=== PATIENT | male | born 1955 | race Caucasian/White ===

== ENCOUNTER 2016-12-28 18:04 | Emergency (ER) | payer MEDICARE ==
[~2016-12-28] VITALS: Ht 185.4 cm; Wt 102.5 kg
[~2016-12-28 18:04] MED LIST: BENZ1TAB61; ESOM20CA PO; GLIP-33; LISI20TA
[2016-12-28 18:15] VITALS: BP 135/75
[2016-12-28] MEDS ORDERED: LIDOCAINE 1%, 20ML INFIL ONE (19:00)
[2016-12-28] MEDS ORDERED: CARBAMIDE PEROXIDE EAR DROPS 6.5%, 15ML RIGHT EAR ONE (19:00)
[2016-12-28] MEDS ORDERED: LIDOCAINE 1%, 20ML ONE (19:47)
== END 2016-12-28 20:23 | disposition home or self-care (01) ==
LOC: ED 19:34
DX: S00.451A Superficial foreign body of right ear, initial encounter (principal); L03.311 Cellulitis of abdominal wall; I10 Essential (primary) hypertension; E11.9 Type 2 diabetes mellitus without complications; X58.XXXA Exposure to other specified factors, initial encounter; Y93.89 Activity, other specified; Y92.89 Other specified places as the place of occurrence of the external cause; Y99.2 Volunteer activity
CPT/HCPCS: 10060; 69200; 69210

== ENCOUNTER 2018-11-06 13:15 | Emergency (ER) | payer MEDICARE ==
[~2018-11-06] VITALS: Ht 185.4 cm; Wt 98.9 kg
[~2018-11-06 13:15] MED LIST changes: +ASPI-496 PO; +BENZATROPINE PO; +GLIP5TAB10 PO; +LISI-170 PO; +METF10002 PO; +TRAZ50TA66 PO
[2018-11-06 13:16] VITALS: BP 120/82
--- NOTE | 2018-11-06 13:44 | NUR ---
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
[2018-11-06] MEDS ORDERED: FLUORESCEIN OPHTHALMIC 1 MG STRIP ONE (13:51)
[2018-11-06] MEDS ORDERED: PROPARACAINE OPHTH 0.5%, 15ML ONE (13:51)
[2018-11-06] MEDS ORDERED: PROPARACAINE OPHTH 0.5%, 15ML EACHEYE ONE (14:00)
[2018-11-06] MEDS ORDERED: FLUORESCEIN OPHTHALMIC 1 MG STRIP EACHEYE ONE (14:00)
--- NOTE | 2018-11-06 14:08 | NUR ---
D/C INSTRUCTIONS & F/U APPT RV'WD WITH PT, HE VERBALIZES UNDERSTANDING. INSTRUCTED PT TO RETURN IF STILL EXPERIENCING PAIN TO L EYE. PT AMBULATED OUT OF ED WITHOUT DIFFICULTY.
== END 2018-11-06 14:11 | disposition home or self-care (01) ==
LOC: ED 13:49
DX: T15.12XA Foreign body in conjunctival sac, left eye, initial encounter (principal); F17.200 Nicotine dependence, unspecified, uncomplicated
CPT/HCPCS: 65205; 65222; 99284

== ENCOUNTER 2019-01-14 20:04 | Emergency (ER) | payer MEDICARE ==
[~2019-01-14] VITALS: Ht 185.4 cm; Wt 98.9 kg
[2019-01-14 20:07] VITALS: BP 123/87
[2019-01-14] MEDS ORDERED: FLUORESCEIN OPHTHALMIC 1 MG STRIP ONE (20:22)
== END 2019-01-14 20:41 | disposition home or self-care (01) ==
LOC: ED 20:25
DX: S05.01XA Injury of conjunctiva and corneal abrasion without foreign body, right eye, initial encounter (principal); K21.9 Gastro-esophageal reflux disease without esophagitis; I10 Essential (primary) hypertension; E11.9 Type 2 diabetes mellitus without complications; X58.XXXA Exposure to other specified factors, initial encounter; Y93.89 Activity, other specified; Y92.89 Other specified places as the place of occurrence of the external cause; Y99.8 Other external cause status
CPT/HCPCS: 99283

== ENCOUNTER 2019-05-23 02:13 | Emergency (ER) | payer MEDICARE ==
[~2019-05-23] VITALS: Ht 185.4 cm; Wt 96.9 kg
[2019-05-23] MEDS ORDERED: MAALOX/HYOSCYAMINE/LIDOCAINE 45 ML BTL ONE (02:40)
[2019-05-23] MEDS ORDERED: FAMOTIDINE 20 MG TABLET ONE (02:40)
[2019-05-23 02:57] LABS: BASOPHILS # (AUTO) 0.02 x10^3/uL (0-0.1); BASOPHILS % (AUTO) 0 % (0-1); EOSINOPHILS # (AUTO) 0.14 x10^3/uL (0-0.4); EOSINOPHILS % (AUTO) 2 % (1-7); LYMPHOCYTES # (AUTO) 1.32 x10^3/uL (1-3.4); LYMPHOCYTES % (AUTO) 21 % (22-44); MD NO; MEAN CORPUSCULAR HEMOGLOBIN 33.2 pg (27.5-34.5); MEAN CORPUSCULAR HGB CONC 34.3 g/dL (33.2-36.2); MEAN CORPUSCULAR VOLUME 96.8 fL (81-97); MEAN PLATELET VOLUME 8.2 fL (7.4-10.4); MONOCYTES # (AUTO) 0.41 x10^3/uL (0.2-0.8); MONOCYTES % (AUTO) 7 % (2-9); NEUTROPHILS # (AUTO) 4.35 x10^3/uL (1.8-6.8); NEUTROPHILS % (AUTO) 70 % (42-75); PLATELET COUNT 200 x10^3/uL (130-400); RED BLOOD COUNT 4.78 x10^6/uL (4.38-5.82); RED CELL DISTRIBUTION WIDTH 12.4 % (9.4-14.8)
[2019-05-23] MEDS ORDERED: FAMOTIDINE 20 MG TABLET PO ONE (03:00)
[2019-05-23] MEDS ORDERED: MAALOX/HYOSCYAMINE/LIDOCAINE 45 ML BTL PO ONE (03:00)
--- NOTE | 2019-05-23 03:00 | NUR ---
PT STATED"HE FEELS BETTER AFTER GI COCKTAIL AND PEPCID PILL, / PAIN NOW FROM A 11/14"
[2019-05-23 03:24] LABS: ALBUMIN 3.3 g/dL (3.4-5.0); ANION GAP 7 mmol/L (5-15); CALCIUM 8.1 mg/dL (8.5-10.1); CHLORIDE 101 mmol/L (98-107); CREATININE 0.79 mg/dL (0.7-1.3)
[2019-05-23 03:27] LABS: ALKALINE PHOSPHATASE 81 U/L (45-117); BILIRUBIN,TOTAL 0.7 mg/dL (0.2-1.0); TOTAL PROTEIN 6.2 g/dL (6.4-8.2)
[2019-05-23 03:29] LABS: ALANINE AMINOTRANSFERASE 50 U/L (12-78)
[2019-05-23 03:50] VITALS: BP 128/74
== END 2019-05-23 04:18 | disposition home or self-care (01) ==
LOC: ED 03:16
DX: R10.13 Epigastric pain (principal); I10 Essential (primary) hypertension; E11.9 Type 2 diabetes mellitus without complications; F20.9 Schizophrenia, unspecified; K21.9 Gastro-esophageal reflux disease without esophagitis
CPT/HCPCS: 36415; 80053; 83690; 85025; 93005; 99284

== ENCOUNTER 2020-01-28 18:24 | Emergency (ER) | payer MEDICARE ==
[~2020-01-28] VITALS: Ht 185.4 cm; Wt 99.9 kg
[2020-01-28] MEDS ORDERED: FLUPHENAZINE INJ (19:35)
[2020-01-28] MEDS ORDERED: DIPH25CA61 PO (19:35)
[2020-01-28] MEDS ORDERED: FENO145T32 PO (19:35)
[2020-01-28] MEDS ORDERED: PIOG30TA68 PO (19:45)
--- NOTE | 2020-01-28 19:45 | NUR ---
LATE ENTRY: PT CAME INTO ED DUE TO MIDLINE ABDOMINAL PAIN THAT HE DESCRIBES 5-6/10 AND "SORENESS, CRAMPING PAIN" PT REPORTS DRY HEAVING AND THAT THE PAIN HAS BEEN THERE FOR ABOUT 30 HOURS. FIRST PT CONTACT: PT RESTING IN GURNEY, WEARING GOWN, NAD, SKIN COLOR WNL WARM AND DRY, PULSES 2+, MAEx4, STATES HE IS SLIGHTLY NAUSEATED CURRENTLY, LAST BM THIS AM. WCTM.
[2020-01-28] MEDS ORDERED: MAALOX/HYOSCYAMINE/LIDOCAINE 45 ML BTL ONE (20:13)
--- NOTE | 2020-01-28 20:15 | NUR ---
PT BACK FROM RADIOLOGY, MEDICATED PER SEP, LAB AT , NO CHANGES IN CONDITION, WCTM, WAITING FOR TEST RESULTS.
[2020-01-28 20:21] LABS: BASOPHILS # (AUTO) 0.03 x10^3/uL (0-0.1); BASOPHILS % (AUTO) 0 % (0-1); EOSINOPHILS % (AUTO) 1 % (1-7); LYMPHOCYTES # (AUTO) 1.57 x10^3/uL (1-3.4); LYMPHOCYTES % (AUTO) 16 % (22-44); MD NO; MEAN CORPUSCULAR HEMOGLOBIN 32.8 pg (27.5-34.5); MEAN CORPUSCULAR HGB CONC 34.4 g/dL (33.2-36.2); MEAN CORPUSCULAR VOLUME 95.3 fL (81-97); MEAN PLATELET VOLUME 8.1 fL (7.4-10.4); MONOCYTES # (AUTO) 0.83 x10^3/uL (0.2-0.8); MONOCYTES % (AUTO) 9 % (2-9); NEUTROPHILS # (AUTO) 7.18 x10^3/uL (1.8-6.8); NEUTROPHILS % (AUTO) 74 % (42-75); PLATELET COUNT 192 x10^3/uL (130-400); RED BLOOD COUNT 4.75 x10^6/uL (4.38-5.82); RED CELL DISTRIBUTION WIDTH 12.4 % (9.4-14.8)
[2020-01-28] MEDS ORDERED: MAALOX/HYOSCYAMINE/LIDOCAINE 45 ML BTL PO ONE (20:30)
[2020-01-28 20:35] LABS: ALBUMIN 3.6 g/dL (3.4-5.0); ANION GAP 6 mmol/L (5-15); CALCIUM 9.5 mg/dL (8.5-10.1); CHLORIDE 97 mmol/L (98-107); CREATININE 0.88 mg/dL (0.7-1.3)
--- NOTE | 2020-01-28 20:38 | NUR ---
PT RESTING IN [facility], STATES HIS ABDOMEN BARELY HURTS NOW. NAD. WCTM. WAITING FOR LAB RESULTS. PT GIVEN URINAL FOR USE.
[2020-01-28 20:39] LABS: ALKALINE PHOSPHATASE 76 U/L (45-117); BILIRUBIN,TOTAL 0.8 mg/dL (0.2-1.0); TOTAL PROTEIN 6.9 g/dL (6.4-8.2); TROPONIN I < 0.015 ng/mL (0.000-0.045)
[2020-01-28 20:40] LABS: ALANINE AMINOTRANSFERASE 40 U/L (12-78)
--- NOTE | 2020-01-28 21:45 | NUR ---
LATE ENTRY: PT GIVEN WARM BLANKET FOR COMFORT, RESTING IN GURNEY, NO CHANGE IN CONDITION. DENIES ADDITIONAL NEEDS AT THIS TIME, NAD. WAITING FOR US. WCTM
--- NOTE | 2020-01-28 22:09 | NUR ---
US AT BS, PT LAYING IN GURNEY APPEARS COMFORTABLE. NAD. STATES PAIN IS GONE. WCTM. WAITING FOR US COMPLETION AND RESULTS.
[2020-01-28 23:14] VITALS: BP 124/81
--- NOTE | 2020-01-28 23:15 | NUR ---
Patient given discharge instructions and they have confirmed that they understand the instructions. Patient ambulatory with steady gait. DENIES ADDITIONAL QUESTIONS AND NEEDS AT THIS TIME, NAD, VSS, NO BELONGINGS LEFT IN ROOM AT TIME OF DC.
== END 2020-01-28 23:16 | disposition home or self-care (01) ==
LOC: ED 21:32
DX: K29.00 Acute gastritis without bleeding (principal); K21.9 Gastro-esophageal reflux disease without esophagitis; E11.9 Type 2 diabetes mellitus without complications; F17.210 Nicotine dependence, cigarettes, uncomplicated
CPT/HCPCS: 36415; 71045; 74021; 76700; 80053; 83690; 84484; 85025; 93005; 99285; 99406

== ENCOUNTER 2020-02-18 11:39 | Emergency (ER) | payer MEDICARE ==
[~2020-02-18] VITALS: Ht 185.4 cm; Wt 100.8 kg
[~2020-02-18 11:39] MED LIST changes: +DIPH25CA61 PO; +FENO145T32 PO; +FLUPHENAZINE INJ; +PIOG30TA68 PO
[2020-02-18 11:50] VITALS: BP 123/79
[2020-02-18] MEDS ORDERED: PROPARACAINE OPHTH 0.5%, 15ML ONE ×2 (11:58→12:02)
[2020-02-18] MEDS ORDERED: FLUORESCEIN OPHTHALMIC 1 MG STRIP ONE ×2 (11:58→12:01)
[2020-02-18] MEDS ORDERED: FLUORESCEIN OPHTHALMIC 1 MG STRIP RIGHTEYE ONE (12:00)
[2020-02-18] MEDS ORDERED: PROPARACAINE OPHTH 0.5%, 15ML RIGHTEYE ONE (12:00)
== END 2020-02-18 12:30 | disposition home or self-care (01) ==
LOC: ED 12:10
DX: S00.211A Abrasion of right eyelid and periocular area, initial encounter (principal); H57.11 Ocular pain, right eye; E11.9 Type 2 diabetes mellitus without complications; X58.XXXA Exposure to other specified factors, initial encounter; Y93.89 Activity, other specified; Y92.89 Other specified places as the place of occurrence of the external cause; Y99.8 Other external cause status
CPT/HCPCS: 99283

== ENCOUNTER 2020-08-19 06:29 | Emergency (ER) | payer MEDICARE ==
[~2020-08-19] VITALS: Ht 185.4 cm; Wt 95.4 kg
--- NOTE | 2020-08-19 06:51 | NUR ---
PT TO ROOM, EXPLAINED NEED FOR UA, PT TO BATHROOM
--- NOTE | 2020-08-19 07:07 | NUR ---
pt is a 64m complaining of abdominal pain and tenderness x 24 hours. denies n/v/d. its a constant pain and states hes never had that before. provider at bedside, warm blankets provided. continuous sp02 and cycling vitals. call light within reach.
[2020-08-19 07:22] LABS: MICROSCOPIC NOT IND
[2020-08-19] MEDS ORDERED: MAALOX/HYOSCYAMINE/LIDOCAINE 45 ML BTL PO ONE (07:30)
[2020-08-19] MEDS ORDERED: MAALOX/HYOSCYAMINE/LIDOCAINE 45 ML BTL ONE (07:45)
[2020-08-19 07:58] LABS: ALANINE AMINOTRANSFERASE 47 U/L (12-78); ALBUMIN 3.4 g/dL (3.4-5.0); ANION GAP 13 mmol/L (5-15); CALCIUM 9.3 mg/dL (8.5-10.1); CHLORIDE 102 mmol/L (98-107); CREATININE 0.78 mg/dL (0.7-1.3)
[2020-08-19 08:00] LABS: ALKALINE PHOSPHATASE 98 U/L (45-117); BILIRUBIN,TOTAL 0.8 mg/dL (0.2-1.0); TOTAL PROTEIN 6.9 g/dL (6.4-8.2)
[2020-08-19 08:01] LABS: EOSINOPHILS % (AUTO) 2 % (1-7); MEAN PLATELET VOLUME 9.2 fL (7.4-10.4)
[2020-08-19 08:06] VITALS: BP 123/77
--- NOTE | 2020-08-19 08:07 | NUR ---
pt resting comfortably in bed awaiting ct. call light within reach, no further needs at this time
[2020-08-19 08:22] LABS: BASOPHILS % (AUTO) 1 % (0-1); LYMPHOCYTES % (AUTO) 15 % (22-44); MEAN CORPUSCULAR HEMOGLOBIN 35.1 pg (27.5-34.5); MONOCYTES % (AUTO) 6 % (2-9); NEUTROPHILS % (AUTO) 76 % (42-75); PLATELET COUNT 218 x10^3/uL (130-400); RED BLOOD COUNT 4.54 x10^6/uL (4.38-5.82); RED CELL DISTRIBUTION WIDTH 12.4 % (9.4-14.8)
[2020-08-19 08:25] LABS: MEAN CORPUSCULAR HGB CONC 37.4 g/dL (33.2-36.2)
[2020-08-19 08:27] LABS: MD SCAN
[2020-08-19] MEDS ORDERED: OMNIPAQUE 350 MG/ML, 100ML BOTTLE ONE (08:38)
--- NOTE | 2020-08-19 09:09 | NUR ---
report to akira garaz.
== END 2020-08-19 10:27 | disposition home or self-care (01) ==
LOC: ED 08:52
DX: R10.84 Generalized abdominal pain (principal); R51.9 Headache, unspecified; E11.9 Type 2 diabetes mellitus without complications; K21.9 Gastro-esophageal reflux disease without esophagitis; F17.200 Nicotine dependence, unspecified, uncomplicated
CPT/HCPCS: 36415; 74021; 74177; 80053; 81003; 83690; 85025; 99285; Q9967

== ENCOUNTER 2020-12-13 19:06 | Emergency (ER) | payer MEDICARE ==
[~2020-12-13] VITALS: Ht 180.3 cm; Wt 89.4 kg
[2020-12-13 19:19] VITALS: BP 116/75
[2020-12-13] MEDS ORDERED: CARBAMIDE PEROXIDE EAR DROPS 6.5%, 15ML EACH EAR ONE (19:30)
--- NOTE | 2020-12-13 19:57 | NUR ---
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 Steady upon ambulation. No acute distress noted at this time.
--- NOTE | 2020-12-13 20:02 | NUR ---
PT STATES, "I HAVE SOME SOAP STUCK IN MY EAR FROM A FEW HOURS AGO, I NEED IT DRAINED, I KNOW YOU GUYS HAVE THE INSTRUMENTS HERE"
[2020-12-13] MEDS ORDERED: CARBAMIDE PEROXIDE EAR DROPS 6.5%, 15ML ONE (20:04)
--- NOTE | 2020-12-13 20:11 | NUR ---
5 DROPS APPLIED TO LEFT EAR, THIS RN WILL RETURN IN 5 MINUTES TO FLUSH IT OUT
--- NOTE | 2020-12-13 20:27 | NUR ---
PT STATES IT FEELS LIKE ITS CLEARED UP A LITTLE IN HIS LEFT EAR
--- NOTE | 2020-12-13 20:29 | NUR ---
PT STATES, "OH I THINK YOU GOT IT THAT TIME" AFTER THIS RN FLUSHED EAR WITH NORMAL SALINE
== END 2020-12-13 20:48 | disposition home or self-care (01) ==
LOC: ED 20:40
DX: T16.1XXA Foreign body in right ear, initial encounter (principal); T16.2XXA Foreign body in left ear, initial encounter; E11.9 Type 2 diabetes mellitus without complications; I10 Essential (primary) hypertension; K21.9 Gastro-esophageal reflux disease without esophagitis; X58.XXXA Exposure to other specified factors, initial encounter; Y93.89 Activity, other specified; Y92.89 Other specified places as the place of occurrence of the external cause; Y99.8 Other external cause status
CPT/HCPCS: 99282; 99284

== ENCOUNTER 2021-01-04 06:32 | Emergency (ER) | payer MEDICARE ==
[~2021-01-04] VITALS: Ht 154.9 cm; Wt 84.2 kg
--- NOTE | 2021-01-04 06:44 | NUR ---
PT C/O OF LOWER BACK PAIN AND RIGHT SMITH PAIN. PT AMBULATED TO ROOM WITH STEADY GAIT. ATTACHED TO MONITORS VSS, NADN. BED IN LOW POSITION, RAILS ENGAGED. CALL LIGHT ON LAP. TM
[2021-01-04] MEDS ORDERED: METHOCARBAMOL 750 MG TABLET ONE (06:57)
[2021-01-04] MEDS ORDERED: KETOROLAC 60 MG/2 ML ONE (06:57)
[2021-01-04] MEDS ORDERED: KETOROLAC 30 MG/1 ML IM ONE (07:00)
[2021-01-04] MEDS ORDERED: METHOCARBAMOL 750 MG TABLET PO ONE (07:00)
[2021-01-04 07:03] VITALS: BP 108/77
== END 2021-01-04 07:23 | disposition home or self-care (01) ==
LOC: ED 07:11
DX: M46.1 Sacroiliitis, not elsewhere classified (principal); M54.5 Low back pain; I10 Essential (primary) hypertension; E11.9 Type 2 diabetes mellitus without complications; K21.9 Gastro-esophageal reflux disease without esophagitis; F17.200 Nicotine dependence, unspecified, uncomplicated
CPT/HCPCS: 96372; 99283; J1885

== ENCOUNTER 2021-01-13 18:34 | Emergency (ER) | payer MEDICARE ==
[~2021-01-13] VITALS: Ht 180.3 cm; Wt 90.4 kg
[2021-01-13 18:52] VITALS: BP 115/77
--- NOTE | 2021-01-13 19:07 | NUR ---
PT HERE FOR MEDICATION REFILL FOR PAIN IN HIS SHINS AND LOWER BACK
== END 2021-01-13 19:27 | disposition home or self-care (01) ==
LOC: ED 19:00
DX: M79.661 Pain in right lower leg (principal); M79.662 Pain in left lower leg; G89.29 Other chronic pain; Z76.0 Encounter for issue of repeat prescription; R00.0 Tachycardia, unspecified; E11.9 Type 2 diabetes mellitus without complications; I10 Essential (primary) hypertension; K21.9 Gastro-esophageal reflux disease without esophagitis
CPT/HCPCS: 99281